=== PATIENT | male | born 1940 | race Caucasian/White ===

== ENCOUNTER 2016-04-11 05:53 | Day surgery (SDC) | payer OTHER, BC ==
[~2016-04-11] VITALS: Ht 185.4 cm; Wt 72.5 kg
[~2016-04-11 05:53] MED LIST: ASPIRIN81 M2 PO; CYANOCOBALAM1000 MCG PO; FISH OIL 1,2001 EAC4 PO; FLOMAX0.4 MG PO; NEXIUM40 MG PO; PROSCAR5 MG PO; ZOCOR20 MG PO
[2016-04-11 06:43] VITALS: BP 133/78
[2016-04-11 06:52] LABS: MCH 31.4 PG (29.0-34.0); MCHC 34.1 G/DL (30.0-36.0); MCV 92.2 FL (86-99); MEAN PLAT.VOLUME 9.8 uM^3 (9.0-12.4); PLATELET COUNT 259 K/uL (156-360); RBC DIS.WIDTH-CV 13.2 % (11.8-14.6); RED BLOOD COUNT 4.77 M/uL (4.00-5.50); WHITE BLOOD COUNT 5.1 K/uL (4.1-10.2)
[2016-04-11 07:14] LABS: ALKALINE PHOSPHATASE 54 IU/L (3-129); ANION GAP 8 MEQ/L (2-14); CHLORIDE 106 MEQ/L (99-109); GFR ESTIMATE (CALCULATED) > 59 mL/min/; GLUCOSE 105 mg/dL (70-99); POTASSIUM 3.5 MEQ/L (3.7-5.4); SAMPLE HEMOLYSIS CHECK 0; SAMPLE ICTERIC CHECK 0; SAMPLE LIPEMIA CHECK 0; SODIUM 143 MEQ/L (136-147); TOTAL BILIRUBIN 0.5 MG/DL (0.0-1.0); UREA NITROGEN (BUN) 27 mg/dL (9-23)
[2016-04-11 11:55] VITALS: BP 121/71
[2016-04-11 12:51] VITALS: BP 112/68
[2016-04-11 14:42] VITALS: BP 124/67
[2016-04-11 19:01] VITALS: BP 129/66
[2016-04-11 23:47] VITALS: BP 127/70
[2016-04-12 03:35] VITALS: BP 123/66
[2016-04-12 08:00] VITALS: BP 118/79
== END 2016-04-12 11:55 | disposition home or self-care (01) ==
LOC: SDC 05:53 → 2SOUTH 09:20 → 2EAST 09:20 → 2SOUTH 09:20 → SDC 12:46 → 2EAST 14:41
PROVIDERS: Ophthalmology
PROC: 08B53ZZ Excision of Left Vitreous, Percutaneous Approach (ICD-10-PCS; principal; 2016-04-11)
PROC: 3E0CXSF Introduction of Other Gas into Eye, External Approach (ICD-10-PCS; principal; 2016-04-11)
PROC: 085F3ZZ Destruction of Left Retina, Percutaneous Approach (ICD-10-PCS; principal; 2016-04-11)
PROC: 08DK3ZZ Extraction of Left Lens, Percutaneous Approach (ICD-10-PCS; principal; 2016-04-11)
DX: H33.42 Traction detachment of retina, left eye (principal); H33.022 Retinal detachment with multiple breaks, left eye; H59.022 Cataract (lens) fragments in eye following cataract surgery, left eye; H31.302 Unspecified choroidal hemorrhage, left eye; K21.9 Gastro-esophageal reflux disease without esophagitis; Z79.82 Long term (current) use of aspirin; Z87.891 Personal history of nicotine dependence
CPT/HCPCS: 80053; 85027; 93005; G0378; J0690; J1100; J1120; J2250; J2795; J2930; J3010; J7120

== ENCOUNTER 2016-05-23 05:27 | Day surgery (SDC) | payer OTHER, BC ==
[~2016-05-23] VITALS: Ht 185.4 cm; Wt 73.5 kg
[2016-05-23 06:31] VITALS: BP 119/68
[2016-05-23 09:20] VITALS: BP 124/79
[2016-05-23 09:40] VITALS: BP 146/74
== END 2016-05-23 09:50 | disposition home or self-care (01) ==
LOC: SDC 05:27
DX: H33.42 Traction detachment of retina, left eye (principal); H31.302 Unspecified choroidal hemorrhage, left eye; K21.9 Gastro-esophageal reflux disease without esophagitis; Z87.891 Personal history of nicotine dependence
CPT/HCPCS: J0131; J0690; J1100; J2405; J2795; J3010; J3300